=== PATIENT | male | born 1975 | race Hispanic/Latino ===

== ENCOUNTER 2017-05-16 06:18 | Day surgery (SDC) | payer MEDICAID ==
[~2017-05-16] VITALS: Ht 175.3 cm; Wt 67.1 kg
[2017-05-16 06:28] VITALS: BP 106/75
[2017-05-16] MEDS ORDERED: FLUC10SU2 PO (07:04)
[2017-05-16] MEDS ORDERED: AZIT250T9 PO (07:04)
[2017-05-16] MEDS ORDERED: DARU1TAB PO (07:04)
[2017-05-16] MEDS ORDERED: DAPS100T PO (07:04)
[2017-05-16] MEDS ORDERED: CHOL500050 PO (07:04)
[2017-05-16] MEDS ORDERED: DOLU10TA PO (07:04)
[2017-05-16] MEDS ORDERED: DRON5CAP15 PO (07:04)
[2017-05-16] MEDS ORDERED: SODIUM CHLORIDE 0.9% 1000ML 1,000 ML IV ONE (07:05)
[2017-05-16] MEDS ORDERED: PROPOFOL 10 MG/ML 20ML VIAL IV ONE ×2 (07:14)
[2017-05-16 07:30] VITALS: BP 108/64
== END 2017-05-16 08:26 | disposition home or self-care (01) ==
LOC: DAH 06:18 → ENDO 06:18
PROVIDERS: ATTEND Internal Medicine Gastroenterology
DX: K62.1 Rectal polyp (principal); A63.0 Anogenital (venereal) warts; K59.00 Constipation, unspecified; Z88.2 Allergy status to sulfonamides; Z79.899 Other long term (current) drug therapy; Z88.8 Allergy status to other drugs, medicaments and biological substances; Z21 Asymptomatic human immunodeficiency virus [HIV] infection status
CPT/HCPCS: 45380; 88305; A4606; J2704 ×2; J7030